=== PATIENT | male | born 1950 | race Caucasian/White ===

== ENCOUNTER 2017-07-27 10:30 | Emergency (ER) | payer MEDICARE ==
[~2017-07-27] VITALS: Ht 177.8 cm; Wt 99.7 kg
[2017-07-27 10:34] VITALS: BP 158/82; PULSE 64; RESP 18; TEMP 98; O2SAT 98
[2017-07-27] MEDS ORDERED: CARV6.252 PO (10:41)
[2017-07-27] MEDS ORDERED: ALPR0.5T3 PO (10:41)
[2017-07-27] MEDS ORDERED: AZEL1SPR2 EACH NARE (10:41)
[2017-07-27] MEDS ORDERED: NIFE30TA61 PO (10:41)
[2017-07-27] MEDS ORDERED: IRBE150T15 PO (10:41)
[2017-07-27] MEDS ORDERED: ESCI10TA PO (10:41)
[2017-07-27] MEDS ORDERED: PRAV20TA2 PO (10:41)
[2017-07-27 11:07] LABS: BILIRUBIN, URINE NEG (NEG); BLOOD, URINE TRACE (NEG); GLUCOSE,URINE NEG (NEG); KETONE, URINE NEG (NEG); NITRITE,URINE NEG (NEG); PH, URINE 5.5 (5.0-8.5); URINE COLOR YELLOW (YELLW/STRAW); URINE LEUKOCYTE ESTERASE NEG (NEG)
[2017-07-27 11:10] LABS: RBC, URINE 0-3 /hpf (0-3); SQUAMOUS EPITHELIAL CELL URINE 0-5 /hpf (0-5)
--- NOTE | 2017-07-27 11:11 | PD ---
HPI Chief Complaint: Abdominal Pain Time Seen by Provider: 11:08 Travel History International Travel<30 days: No Contact w/Intl Traveler<30days: No Traveled to known affect area: No History of Present Illness HPI 67-year-old male with history of hypertension, presents to the ER today for many months history of diarrhea 3-4 times daily, abdominal cramping pains which she currently rates at a 5 out of 10. He denies any nausea, vomiting, fevers, or any other symptoms. He states that he has not gotten better or worse, he states that he is just tired of having it. Modifying Factors: None Associated Signs & Symptoms: Abdominal pain, diarrhea Risk Factors: None PFSH Past Medical History Anxiety: Yes Cancer: Yes (MELANOMA AND BASAL CELLS) High Cholesterol: Yes Diminished Hearing: No Hypertension: Yes Influenza Vaccination: Yes ?: Not Past Surgical History Abdominal Surgery: Yes (HERNIA INGUINAL) Tonsillectomy: Yes Other Surgery: Yes (ACHILLES) Social History Alcohol Use: Yes Tobacco Use: No Allergies-Medications (Allergen,Severity, Reaction): Coded Allergies: No Known Allergies (Verified Allergy, Unknown, 07/27/17) Reported Meds & Prescriptions Reported Meds & Active Scripts Active Reported Azelastine Nasal Xenia (Azelastine HCl) 0.1% Xenia 1 Xenia EACH NARE BID Alprazolam 0.5 Mg Tab 0.5 Mg PO Q6H PRN Irbesartan 150 Mg Tab 150 Mg PO DAILY Nifedipine ER 24 HR (Nifedipine) 30 Mg Tab 30 Mg PO DAILY Escitalopram (Escitalopram Oxalate) 10 Mg Tab 10 Mg PO DAILY Pravastatin 20 Mg Tab 20 Mg PO DAILY Carvedilol 6.25 Mg Tab 6.25 Mg PO BID Review of Systems Except as stated in HPI: all other systems reviewed are Neg Physical Exam Narrative GENERAL: Well-developed elderly male patient currently and mild distress. Awake and oriented 3. SKIN: Focused skin assessment warm/dry. HEAD: Atraumatic. Normocephalic. EYES: Pupils equal and round. No scleral icterus. No injection or drainage. ENT: No nasal bleeding or discharge. Mucous membranes pink and moist. NECK: Trachea midline. No JVD. Supple. CARDIOVASCULAR: Regular rate and rhythm. No murmur appreciated. RESPIRATORY: No accessory muscle use. Clear to auscultation. Breath sounds equal bilaterally. GASTROINTESTINAL: Abdomen soft, non-tender, nondistended. Hepatic and splenic margins not palpable. MUSCULOSKELETAL: No obvious deformities. No clubbing. No cyanosis. No edema. NEUROLOGICAL: Awake and alert. No obvious cranial nerve deficits. Motor grossly within normal limits. Normal speech. PSYCHIATRIC: Appropriate mood and affect; insight and judgment normal. Data Data Last Documented VS Vital Signs Date Time Temp Pulse Resp B/P (MAP) Pulse Ox O2 Delivery O2 Flow Rate FiO2 07/27/17 10:34 98.0 64 18 158/82 (107) 98 Orders Orders Complete Blood Count With Diff (07/27/17 10:55) Comprehensive Metabolic Panel (07/27/17 10:55) Urinalysis - C+S If Indicated (07/27/17 10:55) Iv Access Insert/Monitor (07/27/17 10:55) Lipase (07/27/17 10:55) Labs Laboratory Tests Test 07/27/17 11:00 07/27/17 11:35 Urine Collection Type CLEAN CATCH Urine Color YELLOW Urine Turbidity CLEAR Urine pH 5.5 Urine Specific [place] 1.025 Urine Protein NEG mg/dL Urine Glucose (UA) NEG mg/dL Urine Ketones NEG mg/dL Urine Occult Blood TRACE Urine Nitrite NEG Urine Bilirubin NEG Urine Urobilinogen 0.2 MG/DL Urine Leukocyte Esterase NEG Urine RBC 0-3 /hpf Urine Squamous Epithelial Cells 0-5 /hpf Microscopic Urinalysis Comment CULT NOT INDICATED Urine Collection Time 11:00 White Blood Count 5.0 TH/MM3 Red Blood Count 4.27 MIL/MM3 Hemoglobin 12.9 GM/DL Hematocrit 37.9 % Mean Corpuscular Volume 88.8 FL Mean Corpuscular Hemoglobin 30.1 PG Mean Corpuscular Hemoglobin Concent 33.9 % Red Cell Distribution Width 12.8 % Platelet Count 238 TH/MM3 Mean Platelet Volume 7.2 FL Neutrophils (%) (Auto) 64.3 % Lymphocytes (%) (Auto) 22.1 % Monocytes (%) (Auto) 10.3 % Eosinophils (%) (Auto) 2.8 % Basophils (%) (Auto) 0.5 % Neutrophils # (Auto) 3.3 TH/MM3 Lymphocytes # (Auto) 1.1 TH/MM3 Monocytes # (Auto) 0.5 TH/MM3 Eosinophils # (Auto) 0.1 TH/MM3 Basophils # (Auto) 0.0 TH/MM3 CBC Comment DIFF FINAL Differential Comment Blood Urea Nitrogen 11 MG/DL Creatinine 0.88 MG/DL Random Glucose 89 MG/DL Total Protein 6.9 GM/DL Albumin 3.3 GM/DL Calcium Level 8.8 MG/DL Alkaline Phosphatase 76 U/L Aspartate Amino Transf (AST/SGOT) 20 U/L Alanine Aminotransferase (ALT/SGPT) 26 U/L Total Bilirubin 0.5 MG/DL Sodium Level 139 MEQ/L Potassium Level 3.7 MEQ/L Chloride Level 104 MEQ/L Carbon Dioxide Level 28.7 MEQ/L Anion Gap 6 MEQ/L Estimat Glomerular Filtration Rate 87 ML/MIN Lipase 106 U/L [facility] Medical Decision Making Medical Screen Exam Complete: Yes Emergency Medical Condition: Yes Medical Record Reviewed: Yes Interpretation(s) Laboratory Tests Test 07/27/17 11:00 07/27/17 11:35 Red Blood Count 4.27 MIL/MM3 (4.50-5.90) Hemoglobin 12.9 GM/DL (13.0-17.0) Hematocrit 37.9 % (39.0-51.0) Monocytes (%) (Auto) 10.3 % (0.0-8.0) Albumin 3.3 GM/DL (3.4-5.0) Estimat Glomerular Filtration Rate 87 ML/MIN (>89) Differential Diagnosis Diarrhea, epigastric abdominal pains: Gastritis versus gastroenteritis versus malabsorption syndromes versus dehydration versus electrolyte abnormalities Narrative Course Vital signs are stable in the ER. Abdomen is benign I do not suspect an acute intra-abdominal process. Lab work not indicative of any significant dehydration or electrolyte abnormalities. No significant leukocytosis identified. At this point, symptoms have been going on for several months and my plan would be to release him with follow-up to primary care doctor or GI doctor for further evaluation. Return for any worsening in symptoms as necessary. The plan has been discussed with him he states understanding. Diagnosis Primary Impression: Diarrhea Disposition: DISCHARGE HOME Condition: Stable Janelle William MD Jul 27, 2017 11:11
[2017-07-27 11:47] LABS: AUTOMATED NEUTROPHIL # 3.3 TH/MM3 (1.8-7.7); BASOPHIL % 0.5 % (0.0-2.0); EOSINOPHIL # 0.1 TH/MM3 (0-0.4); EOSINOPHIL % 2.8 % (0.0-4.0); HEMATOCRIT 37.9 % (39.0-51.0); HEMOGLOBIN 12.9 GM/DL (13.0-17.0); LYMPH % 22.1 % (9.0-44.0); LYMPHOCYTE # 1.1 TH/MM3 (1.0-4.8); MEAN CELL VOLUME 88.8 FL (80.0-100.0); MEAN CORPUSCULAR HEMOGLOBIN 30.1 PG (27.0-34.0); MEAN CORPUSCULAR HGB CONC 33.9 % (32.0-36.0); MEAN PLATELET VOLUME 7.2 FL (7.0-11.0); MONO % 10.3 % (0.0-8.0); MONOCYTE # 0.5 TH/MM3 (0-0.9); NEUT % 64.3 % (16.0-70.0); PLATELET COUNT 238 TH/MM3 (150-450); RED BLOOD COUNT 4.27 MIL/MM3 (4.50-5.90); RED CELL DISTRIBUTION WIDTH 12.8 % (11.6-17.2)
[2017-07-27 11:54] LABS: CHLORIDE 104 MEQ/L (98-107); SODIUM (NA) 139 MEQ/L (136-145)
[2017-07-27 11:58] LABS: CALCIUM 8.8 MG/DL (8.5-10.1)
[2017-07-27 11:59] LABS: ALBUMIN 3.3 GM/DL (3.4-5.0); BICARBONATE 28.7 MEQ/L (21.0-32.0); BLOOD UREA NITROGEN 11 MG/DL (7-18); GLUCOSE,RANDOM 89 MG/DL (74-106)
[2017-07-27 12:02] LABS: ALT (GPT) 26 U/L (12-78); AST (GOT) 20 U/L (15-37); CREATININE 0.88 MG/DL (0.60-1.30); GLOMERULAR FILTRATION RATE 87 ML/MIN (>89)
[2017-07-27 12:03] LABS: TOTAL BILIRUBIN ADULT 0.5 MG/DL (0.2-1.0); TOTAL PROTEIN 6.9 GM/DL (6.4-8.2)
[2017-07-27 12:05] LABS: ALKALINE PHOSPHATASE 76 U/L (45-117)
[2017-07-27 12:53] VITALS: BP 142/83
== END 2017-07-27 12:55 | disposition home or self-care (01) ==
LOC: PHED 10:30
DX: R19.7 Diarrhea, unspecified (principal); R10.9 Unspecified abdominal pain; F41.9 Anxiety disorder, unspecified; E78.00 Pure hypercholesterolemia, unspecified; I10 Essential (primary) hypertension; Z79.899 Other long term (current) drug therapy
CPT/HCPCS: 80053; 81001; 83690; 85025; 99283